=== PATIENT | female | born 1980 | race Caucasian/White ===

== ENCOUNTER 2016-12-18 12:11 | Emergency (ER) | payer MEDICAID ==
[~2016-12-18] VITALS: Ht 162.6 cm; Wt 53.5 kg
[2016-12-18 12:11] VITALS: BP_SYST 104
--- NOTE | 2016-12-18 12:11 | NUR ---
BROUGHT BACK TO BED #3 AND TRIAGED. REPORT GIVEN TO SAMI
--- NOTE | 2016-12-18 12:23 | NUR ---
c/o upper abdominal pain,nausea for two days.abdomen soft,non-tender.
--- NOTE | 2016-12-18 12:23 | NUR ---
Liam lundberg in [facility] - 12/18/16 at 1224 by BEKAH Placed in room 3 .
--- NOTE | 2016-12-18 12:23 | NUR ---
ER at bedside examining patient.
[2016-12-18] MEDS ORDERED: NACL 0.9% 1,000 ML IV ONE (12:31)
[2016-12-18 13:20] LABS: BASOPHILS % (AUTO) 0.3 % (0.0-2.0); EOSINOPHILS % (AUTO) 0.5 % (0.0-4.0); HEMATOCRIT 37.7 % (36-48); HEMOGLOBIN 12.3 g/dL (12.0-16.0); LYMPHOCYTES # (AUTO) 1.8 K/uL (1.0-5.5); LYMPHOCYTES % (AUTO) 20.3 % (20.5-51.5); MEAN CORPUSCULAR HEMOGLOBIN 29 pg (27-31); MEAN CORPUSCULAR HGB CONC 33 % (32-36); MEAN CORPUSCULAR VOLUME 89 fL (79.0-98.0); MONOCYTES # (AUTO) 0.6 K/uL (0.0-1.0); MONOCYTES % (AUTO) 6.5 % (1.7-9.3); NEUTROPHILS # (AUTO) 6.3 K/uL (1.8-7.7); NEUTROPHILS % (AUTO) 72.4 % (40.0-70.0); PLATELET COUNT (AUTO) 332 K/uL (130-430); RED BLOOD CELL COUNT(AUTO) 4.25 MIL/uL (4.2-6.2); RED CELL DISTRIBUTION WIDTH 13.2 % (9.0-15.0); WHITE BLOOD COUNT (AUTO) 8.7 K/uL (4.8-10.8)
[2016-12-18 13:21] LABS: CALCIUM 9.1 mg/dL (8.4-11.0); CREATININE 0.64 mg/dL (0.55-1.30); POTASSIUM 3.8 mmol/L (3.5-5.1)
--- NOTE | 2016-12-18 13:23 | NUR ---
Pt to x-ray via W/C.
[2016-12-18 13:29] LABS: BILIRUBIN,URINE NEGATIVE (NEGATIVE); BLOOD, URINE NEGATIVE (NEGATIVE); CLARITY/URINE CLEAR (CLEAR); COLOR,URINE YELLOW (YELLOW); GLUCOSE,URINE NEGATIVE (NEGATIVE); KETONES,URINE NEGATIVE (NEGATIVE); LEUKOCYTE ESTERASE ,URINE NEGATIVE (NEGATIVE); NITRITE, URINE NEGATIVE (NEGATIVE); PROTEIN URINE NEGATIVE (NEGATIVE); UROBILINOGEN,URINE 0.2 (0.2-1.0)
[2016-12-18 13:39] LABS: ALBUMIN 3.4 g/dL (3.4-4.8); TOTAL BILIRUBIN 0.7 mg/dL (0.0-1.0); TOTAL PROTEIN, SERUM 7.5 g/dL (6.4-8.3)
--- NOTE | 2016-12-18 13:47 | NUR ---
back from ultrasound
--- NOTE | 2016-12-18 14:55 | NUR ---
Patient given written and verbal discharge instructions and verbalizes understanding. ER MD discussed with patient the results and treatment provided. Patient in stable condition. ID arm band removed. IV catheter removed intact and dressing applied, no active bleeding. Rx of PROTONIX given. Patient educated on pain management and to follow up with PMD. Pain Scale 2/10. Opportunity for questions provided and answered.
[2016-12-18 14:56] VITALS: BP_SYST 111
== END 2016-12-18 14:55 | disposition home or self-care (01) ==
LOC: SED 12:11
DX: K29.00 Acute gastritis without bleeding (principal); Z98.51 Tubal ligation status
CPT/HCPCS: 36415; 74000; 76700; 80053; 81003; 81025; 83690; 85025; 96360; 99285; J7030